=== PATIENT | male | born 1960 | race Caucasian/White ===

== ENCOUNTER → 2017-06-17 | Outpatient (CLI) | payer OTHER ==
[~2017-06-17] MED LIST: FLAGYL250 MG PO; FOLIC ACID1 MG PO; LIPITOR40 MG PO; LISINOPRIL20 MG PO; MULTIVITAMIN PO
--- NOTE | 2017-06-17 18:14 | Diagnostic Imaging Report ---
PROCEDURE:HIP RIGHT 2-3 VW (+/- PELVIS) COMPARISON:Abdominal CT 10/06/2016 INDICATIONS:RIGHT HIP PAIN FINDINGS: Normal mineralization. No acute fracture or dislocation. Joint spaces are within normal limits. Soft tissues are unremarkable. CONCLUSION: No acute osseous abnormalities. Dictated by: Estrada Dupree M.D. on 06/17/2017 at 18:15 Electronically approved by: Estraad Dupree M.D. on 06/17/2017 at 18:15
== END ==
LOC: RAD 17:00
PROVIDERS: ATTEND Internal Medicine
DX: M16.11 Unilateral primary osteoarthritis, right hip (principal)